=== PATIENT | male | born 1970 | race Caucasian/White ===

== ENCOUNTER 2018-07-13 11:26 | Observation (INO) ==
--- NOTE | 2018-07-13 15:26 | Internal Med History&Physical ---
Date of Encounter: 07/13/18 Time of Encounter: 15:09 Internal Medicine - H&P: HPI Chief complaint: Abdominal Pain Admitted From: Home Plans for Post Hospital Care: Home History of present illness: Mr. Chaudhari is a 48 year old male who presented to [facility] with chief complaint of abdominal pain. Patient states that he recently had over 20 teeth extracted and developed TMJ and was seen at [place]. He states that the shortness him to use Motrin for his TMJ pain. Patient reports 2 days of this and then he subsequently developed progressive and severe abdominal pain and the epigastric and right upper quadrant area. The patient does report a history of similar symptoms 3 years ago and states that he was told that he had inflammation of his bowel, patient states that he had upper endoscopy and colonoscopy of the time but his symptoms improved and he is in no follow-up regarding this issue since then. Patient states over the past 2 days he has been experiencing worsening abdominal pain with nausea and vomiting. The patient denies any correlation with any liquids or food intake. Patient also admits to very watery diarrhea that has started over the last day or 2. Patient denies any hematochezia or hematemesis or melena. Patient reports that he has only been taking NSAIDs for the past 3-4 days. 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 Patient describes pain as severe and intermittent. Currently the patient denies any chest pain, shortness of breath, constipation, blurry vision, no vision, neck pain, headache, neck stiffness, largely swelling. Patient is a light truck driver and travels frequently. Patient has any recent sick contacts. Patient does admit to continued abdominal pain and nausea. Patient has been afebrile. Patient also has history of left-sided lung cancer status post lobectomy and also had "blood clot" around that time that was treated with AC for a few months per pt. Reports past tobacco use denies any current tobacco use or alcohol use. Takes no medications at home his recent NSAIDs. Past Med Surg Social Fam HX - Past Medical History Attestation: Yes The following information was validated with the patient. Medical history: cancer Additional medical history: LUNG CANCER LT UPPER LOBE REMOVED 2009 Psychiatric history: anxiety, depression - Past Surgical History Additional surgical history: LT UPPER LOBE OF LUNG REMOVED DUE TO CA. - Social History Smoking Status: Former smoker Smokeless Tobacco Status: No Alcohol use: rarely Drug use: none - Family History Father Age at : 35 Cause of : CA Hx Family Cardiac Disorders: Yes - Additional Family History Additional family history: Patient history is reviewed with patient and patient denies any significant family history other than is described as above. Internal Medicine - H&P: Meds Ibuprofen [Ibu] 400 mg PO Q6H PRN 07/13/18 [History] 3 Allergy/AdvReac Type Severity Reaction Status Date / Time bupropion [From Wellbutrin] Allergy Seizure Verified 07/13/18 08:10 Varenicline [From Chantix] Allergy Seizure Verified 07/13/18 08:10 All Systems PM: A 10-system review of systems was performed and is negative for pertinent findings except as documented above in the HPI. Review of systems: 10 point review of systems obtained and is otherwise negative other than described in history of present illness - Constitutional Exam: Constitutional: Mild distress secondary to abdominal pain, holding abdomen Psych: AAO x 3 HEENT: NCAT, EOMI Neck: supple, no JVD Cardio: regular rate and rhythm, +s1s2, no murmurs Resp: clear to ascultation bilaterally, no wheezes/rales/ronchi Abd: soft, TTP in right upper quadrant and epigastrum, hyperactive bowel sounds , no guarding, rebound or rigidity Extremities: no clubbing/cyanosis/edema appreciated Neuro: no focal deficits appreciated Lymph: no cervical/supraclavicular adenopahty apprecitated - Assessment and plan (1) Abdominal pain Current Visit: Yes Status: Acute Assessment and plan: -3 day history of worsening intermittent RUQ, epigastric pain and diarrhea -CT with findings suggestive of inflammatory or infectious duodenitis; suspect inflammatory due to lack of fever and leukocytosis -Denies any hematemesis, melena, hematochezia -Recent NSAID use secondary to tooth extraction; symptoms began 2 days after NSAIDs were started; no chronic use -reports hx of inflammed bowel 3 years ago that was evaluated by EGD, colonoscopy; however symptoms improved and has had no follow-up regarding this issue -LFTs and lipase within normal limits -Gen surgery contacted by [facility] to consult and evaluate -Obtain RUQ us to evaluate GB for completeness as the pain is intermittent and possible sludge/stones in GB on CT scan -po PPI bid -analgesia -A.m. labs -Should the patient developed leukocytosis or fever will have low threshold for starting antibiotics with Rocephin and Flagyl for duodenitis; but will hold off for now -Due to associated diarrhea will check GI panel Qualifiers: Abdominal location: right upper quadrant Qualified Code(s): R10.11 - Right upper quadrant pain (2) Duodenitis Current Visit: Yes Status: Acute Assessment and plan: -as above -suspect acute on chronic; possibly associated with recent NSAID use, however no chronic NSAID use -surgery to evaluate -suspect inflammatory vs less likely infectious; hold off on abx for now -CLD -analgesia -reports hx of similar symptoms 3 years ago and had EGD/Colonoscopy at that time and told he had bowel inflammation -will monitor -PPI (3) Cyst of left kidney Current Visit: Yes Status: Acute Assessment and plan: -7mm upper pole cyst of left kidney -incidentally found on imaging -likely hemorrhagic per CT report -outpatient follow up as needed (4) History of lung cancer Current Visit: Yes Status: Acute Assessment and plan: -RENZO lung ca in 2008 -s/p lobectomy -no recurrence to date (5) History of thrombosis Current Visit: Yes Status: Acute Assessment and plan: -associated with hx of lung cancer -treated appropriately and no recurrence -sq heparin (6) Past use of tobacco Current Visit: Yes Status: Acute Assessment and plan: -50 pack year history -stopped 9 years ago (7) DVT prophylaxis Current Visit: Yes Status: Acute Assessment and plan: -heparin sq - Time Spent With Patient Total time spent is greater than 50% in coordination of care (as documented) at patient's floor/unit and/or counseling patient: Greater than 35 minutes (40 minutes)
[2018-07-13] MEDS ORDERED: Naloxone 0.4 MG/ML INJ IVP PRN (15:29)
[2018-07-13] MEDS: OXYCODONE Oral CONC 10 MG/0.5 ML ORAL.SYG SL PRN ×2 (16:39→20:39)
[2018-07-13] MEDS: Ringers Solution, Lactated 1,000 ML IVC SCH (16:39)
--- NOTE | 2018-07-13 16:58 | General Surgery Consult Note ---
<Valerie Bartholomew - Last Filed: 07/13/18 16:40> Date of Encounter: 07/13/18 Time of Encounter: 16:40 Assessment and Plan (1) Duodenitis Current Visit: Yes Status: Acute Based on CT abd pelvis most likely cause of RUQ pain is duodenitis Gall bladder etiology unlikely given normal liver enzymes and RUQ US showed normal gallbladder with out stones, wall thickening, pericholecystic fluid, or bilary duct dilation. - GI infectious panel ordered by primary team and reflex precautions - agree with IVF and pain medications prn - start IV protonix daily - start carafate - zofran , then phenegran for nausea - NPO at midnight - plan for EGD with in 24 -[address] Tinajero - surgery will continue to follow History of Present Illness Consult date: 07/13/18 Reason for consult: abdominal pain Requesting physician: René Starkey History of present illness: 3o malew with distant history of lung cancer presented to [facility] with two days of RUQ abdominal pain that started after taking Ibuprofen for TMJ. Associated symptoms of bilious vomiting, nausea, and increased diarrhea from this chronic baseline. He describes loose moderate volumed stool with no change in color just increase in bowel movements. Last emesis reported early this morning. Onset on with reflux pain after started taking ibuprofen 400mg q 6 on Sunday night after diagnosed with TMJ.. At [facility], his CT showed duodenal thickening . Normal labs for liver function , INR, CBC, CMP, UDS, lipase and amylase. He denies recent hospitalization, recent antibiotics or diagnosis with crohnes or ulcerative colitis. He had last EGD and colonoscopy 3-4 years ago at [facility] for what he describes as swelling of bowels and a gastric ulcer - but no history of GI bleed. He drinks at least one pot of coffee per day and another three 22 oz bottles of tea when on the road. 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 At [facility], we were consulted by hospitalist service after GI panel and liver US were ordered. He takes no other medications except occasional tumeric, janes or probiotic. Former smoker with past history of heavy EtOH use - but denies any recent use of either. Barry any illicit substance use. Family history of unknown gallbladder issues in mother. PMHx lung cancer post lobectomy with adjunctive chemo and radiation in 2009. He was released form oncology care for PCP to follow with scans and no current concern for reemergence. His surgical history also includes several inguinal hernia repairs- with no adverse reaction to anesthesia . Past Med Surg Social Fam HX - Past Medical History Medical history: cancer Additional medical history: LUNG CANCER LT UPPER LOBE REMOVED 2009 Psychiatric history: anxiety, depression - Past Surgical History Additional surgical history: LT UPPER LOBE OF LUNG REMOVED DUE TO CA. - Social History Smoking Status: Former smoker Smokeless Tobacco Status: No Alcohol use: rarely Drug use: none - Family History Father Age at : 35 Cause of : [place] Hx Family Cardiac Disorders: Yes Medications and Allergies Ibuprofen [Ibu] 400 mg PO Q6H PRN 07/13/18 [History] 3 Allergy/AdvReac Type Severity Reaction Status Date / Time bupropion [From Wellbutrin] Allergy Seizure Verified 07/13/18 08:10 Varenicline [From Chantix] Allergy Seizure Verified 07/13/18 08:10 Review of Systems All systems PM: The remainder of the systems were reviewed and are negative - Constitutional malaise - Gastrointestinal abdominal pain, change in stool character, diarrhea, dyspepsia, heartburn, loose stools, nausea, vomiting, no coffee ground emesis, no hematemesis, no melena General Surgery Exam Initial Vital Signs Temp Pulse Resp BP Pulse Ox 98.2 F 64 17 120/78 97 07/13/18 15:29 07/13/18 15:29 07/13/18 15:29 07/13/18 15:29 07/13/18 15:29 - General physical appearance well developed, well nourished, moderate distress - Eyes normal ocular movement - ENT normal pinna, normal nares, dry mucosa - Respiratory normal expansion, normal respiratory effort, clear to auscultation - Cardiovascular Cardiovascular exam: Present: RRR, no murmurs/rubs/gallops - Abdomen Abdomen general surgery: Present: bowel sounds present, soft. Absent: tympanic , distended, guarding Abdominal Tenderness: Present: RUQ Hernia: Present: none - Integumentary Integumentary general surgery: Present: warm and dry. Absent: diaphoresis - Neurologic Present: CN 2-12 grossly intact, normal coordination, normal sensation - Musculoskeletal Present: normal gait, normal posture - Psychiatric Psychiatric general surgery: Present: A&Ox3, speech is normal, memory intact Exam Initial Vital Signs Temp Pulse Resp BP Pulse Ox 98.2 F 64 17 120/78 97 07/13/18 15:29 07/13/18 15:29 07/13/18 15:29 07/13/18 15:29 07/13/18 15:29 Results - Labs All other labs normal. Consult Discharge Plan - Plan Referrals: Moshe York CNP [Primary Care Provider] - Nancy Freitas [Family Provider] - <Galen Tinajero M - Last Filed: 07/14/18 06:52> Date of Encounter: 07/13/18 Review of Systems All systems PM: The remainder of the systems were reviewed and are negative General Surgery Exam Initial Vital Signs Temp Pulse Resp BP Pulse Ox 98.2 F 64 17 120/78 97 07/13/18 15:29 07/13/18 15:29 07/13/18 15:29 07/13/18 15:29 07/13/18 15:29 Exam Initial Vital Signs Temp Pulse Resp BP Pulse Ox 98.2 F 64 17 120/78 97 07/13/18 15:29 07/13/18 15:29 07/13/18 15:29 07/13/18 15:29 07/13/18 15:29 Results - Labs 07/14/18 04:20 07/14/18 04:20 Abnormal lab results RBC 4.03 M/mcL (4.19-5.50) L 07/14/18 04:20 Hgb 12.1 g/dL (12.9-16.9) L D 07/14/18 04:20 Hct 36.1 % (37.5-50.1) L 07/14/18 04:20 Eosinophils # 0.7 K/mcL (0.0-0.6) H 07/14/18 04:20 Chloride 112 mEq/L (98-107) H 07/14/18 04:20 POC Glucose 122 mg/dL (70-99) H 07/14/18 05:31 Calcium 8.4 mg/dL (8.6-10.3) L 07/14/18 04:20 Diabetes panel 07/14/18 Range/Units 04:20 Sodium 141 (136-145) mEq/L Potassium 4.1 (3.5-5.1) mEq/L Chloride 112 H (98-107) mEq/L Carbon Dioxide 25 (23-29) mEq/L BUN 10 (6-20) mg/dL Creatinine 0.82 (0.70-1.30) mg/dL Glucose 97 (70-105) mg/dL Calcium 8.4 L (8.6-10.3) mg/dL Calcium panel 07/14/18 Range/Units 04:20 Calcium 8.4 L (8.6-10.3) mg/dL Pituitary panel 07/14/18 Range/Units 04:20 Sodium 141 (136-145) mEq/L Potassium 4.1 (3.5-5.1) mEq/L Chloride 112 H (98-107) mEq/L Carbon Dioxide 25 (23-29) mEq/L BUN 10 (6-20) mg/dL Creatinine 0.82 (0.70-1.30) mg/dL Glucose 97 (70-105) mg/dL Calcium 8.4 L (8.6-10.3) mg/dL Adrenal panel 07/14/18 Range/Units 04:20 Sodium 141 (136-145) mEq/L Potassium 4.1 (3.5-5.1) mEq/L Chloride 112 H (98-107) mEq/L Carbon Dioxide 25 (23-29) mEq/L BUN 10 (6-20) mg/dL Creatinine 0.82 (0.70-1.30) mg/dL Glucose 97 (70-105) mg/dL Calcium 8.4 L (8.6-10.3) mg/dL All other labs normal. - Attending Attestation I examined this patient and my medical decision-making was reviewed with the Resident Physician. I agree with the documented findings, disposition and treatment plan as described except to the extent set forth below. I reviewed the above assessment and evaluation and agree with the above plan. Patient has had right upper quadrant pain for the past 2 days. He started taking Motrin for TMJ pain during that period. Denies any nausea or vomiting. Tender to palpation in right upper quadrant with no palpable masses noted. I personally reviewed the CT scan images were performed which demonstrated inflammation of the duodenum. There is no evidence of free air or free fluid. It does not look like he has any abnormalities related to the pancreas. I agree with the assessment of duodenitis and will start Protonix as well as Carafate. We will also perform an EGD for further evaluation. Discussed with the patient and he agrees with the above plan.
[2018-07-13] MEDS ORDERED: Ondansetron 4 MG/2 ML VIAL IVP PRN (17:00)
[2018-07-13] MEDS ORDERED: *HR* Promethazine 25 MG/ML VIAL IVP PRN (17:01)
[2018-07-13] MEDS: Sucralfate 1 GM TABLET PO SCH ×2 (17:59→21:28)
[2018-07-13] MEDS: Pantoprazole 40 MG VIAL IVP SCH (17:59)
[2018-07-13] MEDS: *HR* Heparin 5,000 UNIT/ML VIAL SQ SCH (21:28)
[2018-07-14] MEDS: OXYCODONE Oral CONC 10 MG/0.5 ML ORAL.SYG SL PRN ×4 (04:13→18:47)
[2018-07-14 04:46] LABS: Basophils % 0.7 %; Eosinophils # 0.7 K/mcL (0.0-0.6); Eosinophils % 11.7 %; Hematocrit 36.1 % (37.5-50.1); Hemoglobin 12.1 g/dL (12.9-16.9); Immature Granulocytes % 0.2 % (0-4); Lymphocytes % 32.7 %; Mean Corpuscular HGB Conc 33.5 g/dL (31.6-35.5); Mean Corpuscular Volume 89.6 fL (83.0-100.0); Mean Platelet Volume 10.3 fL (9.4-12.4); Monocytes # 0.5 K/mcL (0.0-1.3); Monocytes % 7.9 %; Neutrophils # 2.8 K/mcL (1.6-8.9); Platelet Count 158 K/mcL (140-400); Red Blood Count 4.03 M/mcL (4.19-5.50); Red Cell Distribution Width 13.8 % (11.5-14.5); Segmented Neutrophils % 46.8 %
[2018-07-14 05:13] LABS: BUN/Creatinine Ratio 12 (6-26); Blood Urea Nitrogen 10 mg/dL (6-20); Calcium 8.4 mg/dL (8.6-10.3); Carbon Dioxide 25 mEq/L (23-29); Chloride 112 mEq/L (98-107); Glucose 97 mg/dL (70-105); Osmolality,Calculated 291 (280-300); Potassium 4.1 mEq/L (3.5-5.1); Sodium 141 mEq/L (136-145); eGFR For Non-African Americans > 60 (> 60)
[2018-07-14] MEDS: *HR* Heparin 5,000 UNIT/ML VIAL SQ SCH ×3 (05:38→21:11)
[2018-07-14] MEDS: Sucralfate 1 GM TABLET PO SCH ×4 (06:48→21:11)
[2018-07-14] MEDS: Ringers Solution, Lactated 1,000 ML IVC SCH (07:05)
[2018-07-14] MEDS ORDERED: Lidocaine -MPF 2% 2 ML VIAL ONE (07:08)
[2018-07-14] MEDS ORDERED: *HR* Propofol 200 MG/20 ML VIAL IVP ONE (07:08)
--- NOTE | 2018-07-14 07:58 | Anesthesia Evaluation PreOp ---
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 Other Medical History: Other (INTERMITTENT SEVERE ABDOMINAL PAIN, ?DUODENITIS) Anesthesia History: No Prior Anesthetic Complications, Past Anesthesia Alcohol Use: rarely Drug use: none Medications and Allergies Ibuprofen [Ibu] 400 mg PO Q6H PRN 07/13/18 [History] 3 Allergy/AdvReac Type Severity Reaction Status Date / Time bupropion [From Wellbutrin] Allergy Seizure Verified 07/13/18 08:10 Varenicline [From Chantix] Allergy Seizure Verified 07/13/18 08:10 - Meds/Allergy Pre-op Review Medications Reviewed: Yes Allergies Reviewed: Yes Beta Blockers on Current Med List: No Anesthesia Results - Labs 07/14/18 04:20 07/14/18 04:20 Laboratory Last Values WBC 6.1 K/mcL (4.3-11.1) 07/14/18 04:20 RBC 4.03 M/mcL (4.19-5.50) L 07/14/18 04:20 Hgb 12.1 g/dL (12.9-16.9) L D 07/14/18 04:20 Hct 36.1 % (37.5-50.1) L 07/14/18 04:20 MCV 89.6 fL (83.0-100.0) 07/14/18 04:20 MCH 30.0 pg (28.0-33.3) 07/14/18 04:20 MCHC 33.5 g/dL (31.6-35.5) 07/14/18 04:20 RDW 13.8 % (11.5-14.5) 07/14/18 04:20 Plt Count 158 K/mcL (140-400) 07/14/18 04:20 MPV 10.3 fL (9.4-12.4) 07/14/18 04:20 Immature Gran % 0.2 % (0-4) 07/14/18 04:20 Seg Neutrophils % 46.8 % 07/14/18 04:20 Lymphocytes % 32.7 % 07/14/18 04:20 Monocytes % 7.9 % 07/14/18 04:20 Eosinophils % 11.7 % 07/14/18 04:20 Basophils % 0.7 % 07/14/18 04:20 Neutrophils # 2.8 K/mcL (1.6-8.9) 07/14/18 04:20 Lymphocytes # 2.0 K/mcL (0.6-4.6) 07/14/18 04:20 Monocytes # 0.5 K/mcL (0.0-1.3) 07/14/18 04:20 Eosinophils # 0.7 K/mcL (0.0-0.6) H 07/14/18 04:20 Basophils # 0.0 K/mcL (0.0-0.2) 07/14/18 04:20 Sodium 141 mEq/L (136-145) 07/14/18 04:20 Potassium 4.1 mEq/L (3.5-5.1) 07/14/18 04:20 Chloride 112 mEq/L (98-107) H 07/14/18 04:20 Carbon Dioxide 25 mEq/L (23-29) 07/14/18 04:20 BUN 10 mg/dL (6-20) 07/14/18 04:20 Creatinine 0.82 mg/dL (0.70-1.30) 07/14/18 04:20 Est GFR ( Amer) > 60 (> 60) 07/14/18 04:20 Est GFR (Non-Af Amer) > 60 (> 60) 07/14/18 04:20 BUN/Creatinine Ratio 12 (6-26) 07/14/18 04:20 Glucose 97 mg/dL (70-105) 07/14/18 04:20 POC Glucose 122 mg/dL (70-99) H 07/14/18 05:31 Calculated Osmolality 291 (280-300) 07/14/18 04:20 Calcium 8.4 mg/dL (8.6-10.3) L 07/14/18 04:20 Anesthesia Exam Vital Signs/O2 Sat, Most Current Temp Pulse Resp BP Pulse Ox 98 F 60 16 116/73 93 07/14/18 06:39 07/14/18 06:39 10 06:39 07/14/18 06:39 07/14/18 06:39 HEIGHT 1.68 m WEIGHT 80 kg BMI 29 NPO (# of Hours): 8 - HEENT Mallampati: II Teeth: Edentulous Oral Opening: Greater than 3 - Cardiac Rhythm: Regular - Pulmonary Breath Sounds: bilateral Clear Respiratory Effort: Symmetrical - Additional Findings INPATIENT Active Medications Heparin Sodium (Porcine) (Heparin) 5,000 unit SQ Q8HCO [facility] Stop: 01/12/19 22:01 Last Admin: 07/14/18 05:38 Dose: 5,000 unit Lactated Ringer's (Lactated Ringers) 1,000 mls @ 75 mls/hr IVC .[id number] [facility] Stop: 07/14/18 18:09 Last Admin: 07/13/18 16:39 Dose: 75 mls/hr Ondansetron HCl (Zofran) 4 mg IVP Q6HR PRN; Protocol PRN Reason: Nausea Stop: 01/12/19 17:01 Oxycodone HCl (Oxycodone Oral Conc) 5 mg SL Q4H PRN; Protocol PRN Reason: mild to moderate pain Stop: 01/12/19 15:30 Last Admin: 07/14/18 04:13 Dose: 5 mg Pantoprazole Sodium (Protonix) 40 mg IVP DAILY [facility] Stop: 01/12/19 17:16 Last Admin: 07/13/18 17:59 Dose: 40 mg Anesthesia Assess/Plan ASA Score: 3 Modified Dasha Scale for Level of Consciousness: Cooperative, oriented, and tranquil Anesthetic Plan: MAC Monitoring Plan: Standard Monitors Recovery Plan: Other Anes Supervising Prov Stmt: Patient informed and consented. Risks, benefits, and alternatives discussed. Patient wishes to proceed.
[2018-07-14] MEDS: Pantoprazole 40 MG VIAL IVP SCH (08:14)
[2018-07-14] MEDS ORDERED: Ondansetron 4 MG/2 ML VIAL ONE (08:17)
--- NOTE | 2018-07-14 09:20 | Event Note ---
Date of Encounter: 07/14/18 Time of Encounter: 09:18 EGD performed. Noted erythema in the stomach. Biopsies obtained. Duodenal erosions and inflammation in the 1st and 2nd portion of the duodenum. Biopsies and cultures obtained. Continue with Carafate, PPI, and will add Flagyl. Await culture and biopsy results.
--- NOTE | 2018-07-14 09:56 | Internal Med Progress Note ---
Hospitalist Progress Note - Encounter Date of Encounter: 07/14/18 Time of Encounter: 09:53 - Subjective Interval History: Patient seen and examined at bedside. Patient no acute overnight events. Patient continues to have continued abdominal pain with nausea but no further vomiting. Patient denies any chest pain, shortness of breath, diarrhea or constipation. Patient has had no bowel movement since admission. EGD this am - Exam Vitals: Temp Pulse Resp BP Pulse Ox 98 F 84 16 152/83 97 07/14/18 08:48 07/14/18 08:48 07/14/18 08:48 07/14/18 08:48 07/14/18 08:48 Exam: Constitutional: Mild distress secondary to abdominal pain, holding abdomen Psych: AAO x 3 HEENT: NCAT, EOMI Neck: supple, no JVD Cardio: regular rate and rhythm, +s1s2, no murmurs Resp: Expiratory wheeze in left lower base Abd: soft, TTP in right upper quadrant and epigastrum that is improved from yesterday, normactive bowel sounds, no guarding, rebound or rigidity Extremities: no clubbing/cyanosis/edema appreciated Neuro: no focal deficits appreciated - Assessment and Plan (1) Abdominal pain Current Visit: Yes Status: Inactive Assessment and Plan: -3 day history of worsening intermittent RUQ, epigastric pain and diarrhea -CT with findings suggestive of inflammatory or infectious duodenitis; suspect inflammatory due to lack of fever and leukocytosis -Denies any hematemesis, melena, hematochezia -Recent NSAID use secondary to tooth extraction; symptoms began 2 days after NSAIDs were started; no chronic use -reports hx of inflammed bowel 3 years ago that was evaluated by EGD, colonoscopy; however symptoms improved and has had no follow-up regarding this issue -LFTs and lipase within normal limits -Gen surgery following, EGD this am showed duodenal erosion and inflamation in 1st and 2nd part of duodenum; cultures and biopsies obtained. -flagyl started -GB US unremarkable -IV PPI bid -analgesia -carafate started -A.m. labs -no fever or leukocytosis -Due to associated diarrhea will check GI panel; however no bm since admission (2) Duodenitis Current Visit: Yes Status: Acute Assessment and Plan: -as above -suspect acute on chronic; possibly associated with recent NSAID use, however no chronic NSAID use -surgery following -suspect inflammatory vs infectious; flagyl started due to duodenal erosions and inflamation, giardia ordered -FLD -analgesia -reports hx of similar symptoms 3 years ago and had EGD/Colonoscopy at that time and told he had bowel inflammation -will monitor -PPI (3) Cyst of left kidney Current Visit: Yes Status: Acute Assessment and Plan: -7mm upper pole cyst of left kidney -incidentally found on imaging -likely hemorrhagic per CT report -outpatient follow up as needed (4) History of lung cancer Current Visit: Yes Status: Acute Assessment and Plan: -RENZO lung ca in 2008 stage III -s/p lobectomy -no recurrence to date (5) History of thrombosis Current Visit: Yes Status: Acute Assessment and Plan: -associated with hx of lung cancer -treated appropriately and no recurrence -sq heparin (6) Past use of tobacco Current Visit: Yes Status: Acute Assessment and Plan: -50 pack year history -stopped 9 years ago (7) DVT prophylaxis Current Visit: Yes Status: Acute Assessment and Plan: -heparin sq DVT Prophylaxis: -sq heparin - Time Spent with Patient Total time spent is greater than 50% in coordination of care (as documented) at patient's floor/unit and/or counseling patient: 25 - 35 minutes Plan of Care Discussed with: family Internal Medicine: Result - Labs CBC & Chem 7: 07/14/18 04:20 07/14/18 04:20 Labs: Short CBC 07/14/18 Range/Units 04:20 WBC 6.1 (4.3-11.1) K/mcL Hgb 12.1 L D (12.9-16.9) g/dL Hct 36.1 L (37.5-50.1) % Plt Count 158 (140-400) K/mcL Neutrophils # 2.8 (1.6-8.9) K/mcL BMP 07/14/18 04:20 Sodium 141 Potassium 4.1 Chloride 112 H Carbon Dioxide 25 BUN 10 Creatinine 0.82 Glucose 97 Calcium 8.4 L - Impressions Impressions Gallbladder Ultrasound 07/13/18 15:33 IMPRESSION: Unremarkable right upper quadrant ultrasound. D/ / Richmond Rosario MD / Richmond Rosario MD Interpreting Provider: Richmond Rosario MD Consult Discharge Plan - Plan Referrals: Moshe York, [place] [Primary Care Provider] - Nancy Freitas [Family Provider] - (1) Abdominal pain Qualifiers: Abdominal location: right upper quadrant Qualified Code(s): R10.11 - Right upper quadrant pain
[2018-07-14] MEDS: Acetaminophen 325 MG TABLET PO PRN (21:10)
[2018-07-14] MEDS: metroNIDAZOLE 500 MG TABLET PO SCH (21:11)
[2018-07-15 02:11] LABS: Basophils # 0.1 K/mcL (0.0-0.2); Eosinophils # 0.7 K/mcL (0.0-0.6); Eosinophils % 13.6 %; Hematocrit 35.7 % (37.5-50.1); Hemoglobin 11.9 g/dL (12.9-16.9); Immature Granulocytes % 0.2 % (0-4); Lymphocytes # 2.2 K/mcL (0.6-4.6); Lymphocytes % 43.8 %; Mean Corpuscular HGB Conc 33.3 g/dL (31.6-35.5); Mean Corpuscular Volume 89.9 fL (83.0-100.0); Mean Platelet Volume 10.5 fL (9.4-12.4); Monocytes # 0.4 K/mcL (0.0-1.3); Monocytes % 8.8 %; Neutrophils # 1.6 K/mcL (1.6-8.9); Platelet Count 149 K/mcL (140-400); Red Blood Count 3.97 M/mcL (4.19-5.50); Red Cell Distribution Width 13.6 % (11.5-14.5); Segmented Neutrophils % 32.6 %
[2018-07-15 02:33] LABS: BUN/Creatinine Ratio 6 (6-26); Blood Urea Nitrogen 6 mg/dL (6-20); Calcium 8.7 mg/dL (8.6-10.3); Carbon Dioxide 28 mEq/L (23-29); Chloride 109 mEq/L (98-107); Glucose 93 mg/dL (70-105); Osmolality,Calculated 289 (280-300); Potassium 4.3 mEq/L (3.5-5.1); Sodium 141 mEq/L (136-145); eGFR For Non-African Americans > 60 (> 60)
[2018-07-15] MEDS: Acetaminophen 325 MG TABLET PO PRN (03:46)
[2018-07-15] MEDS: *HR* Heparin 5,000 UNIT/ML VIAL SQ SCH (06:26)
[2018-07-15 07:42] VITALS: BP 138/74
[2018-07-15] MEDS: Sucralfate 1 GM TABLET PO SCH ×2 (08:10→11:04)
[2018-07-15] MEDS: Pantoprazole 40 MG VIAL IVP SCH (08:10)
[2018-07-15] MEDS: metroNIDAZOLE 500 MG TABLET PO SCH (08:10)
[2018-07-15] MEDS: OXYCODONE Oral CONC 10 MG/0.5 ML ORAL.SYG SL PRN (08:14)
--- NOTE | 2018-07-15 08:14 | General Surgery Progress Note ---
Date of Encounter: 07/15/18 Time of Encounter: 08:12 - Assessment and Plan (1) Duodenitis Current Visit: Yes Status: Acute I reviewed with the patient the results of the EGD findings. Biopsies are pending. From a surgical standpoint I am okay with him being discharged home today. Recommend Flagyl 500 mg by mouth twice a day for 5 days. We will make certain that he has a follow-up to see us in the office in 2 weeks. Subjective Patient reports: other (Patient states his abdominal pain is improved. Tolerated full liquids yesterday evening without nausea or vomiting.) Objective Vital Signs - Last 8 Hours Temp Pulse Resp BP Pulse Ox 07/15/18 07:35 97.7 F 58 14 138/74 97 07/15/18 03:32 97.6 F 62 16 125/69 96 Intake and Output 07/14/18 07/15/18 07/15/18 23:59 07:59 15:59 Intake Total 1120 / 1120 0 / 0 Output Total 1600 / 1600 700 / 700 Balance -480 / -480 -700 / -700 Intake: IV Fluids 1000 / 1000 Lactated Ringers 1,000 ML @ 75 1000 / 1000 mls/hr IVC .[id number] MALINDA Rx#: [id number] Oral 120 / 120 0 / 0 Output: Urine 1600 / 1600 700 / 700 Other: Percent of Meal Consumed 65% Weight 80.5 kg Patient Weight 07/15/18 23:59 Weight 80.5 kg - General physical appearance well nourished, no distress - Abdomen Abdomen: Present: soft, tender (minimal RUQ pain) - Labs 07/15/18 01:28 07/15/18 01:28 Diabetes panel 07/15/18 Range/Units 01:28 Sodium 141 (136-145) mEq/L Potassium 4.3 (3.5-5.1) mEq/L Chloride 109 H (98-107) mEq/L Carbon Dioxide 28 (23-29) mEq/L BUN 6 (6-20) mg/dL Creatinine 0.94 (0.70-1.30) mg/dL Glucose 93 (70-105) mg/dL Calcium 8.7 (8.6-10.3) mg/dL Calcium panel 07/15/18 Range/Units 01:28 Calcium 8.7 (8.6-10.3) mg/dL Pituitary panel 07/15/18 Range/Units 01:28 Sodium 141 (136-145) mEq/L Potassium 4.3 (3.5-5.1) mEq/L Chloride 109 H (98-107) mEq/L Carbon Dioxide 28 (23-29) mEq/L BUN 6 (6-20) mg/dL Creatinine 0.94 (0.70-1.30) mg/dL Glucose 93 (70-105) mg/dL Calcium 8.7 (8.6-10.3) mg/dL Adrenal panel 07/15/18 Range/Units 01:28 Sodium 141 (136-145) mEq/L Potassium 4.3 (3.5-5.1) mEq/L Chloride 109 H (98-107) mEq/L Carbon Dioxide 28 (23-29) mEq/L BUN 6 (6-20) mg/dL Creatinine 0.94 (0.70-1.30) mg/dL Glucose 93 (70-105) mg/dL Calcium 8.7 (8.6-10.3) mg/dL Consult Discharge Plan - Plan Referrals: Moshe York CNP [Primary Care Provider] - Nancy Freitas [Family Provider] -
--- NOTE | 2018-07-15 08:34 | Discharge Summary ---
- NOTES TO OUTPATIENT PROVIDER Notes to Outpatient Provider: Patient presented with severe abdominal pain and was found to have duodenitis patient was seen by general surgery performed EGD with biopsies that are currently pending. Please follow up on these biopsies. Patient also reported recent diarrhea however this resulted in the hospital and therefore stool panel was unable to be obtained. General surgery recommended continuing Flagyl 500 twice a day for 5 additional days. Patient will be discharged on Flagyl, Carafate, Protonix. Patient follow-up with Dr. Tinajero from general surgery in 2 weeks. Patient stable and agreeable to discharge on 07/15/2018. All questions answered. Patient instructed to follow his primary care physician within one week. Orders not resulted at time of discharge: Pending orders 07/14/18 09:14 Surgical Pathology [PTH] Routine 07/14/18 09:46 Culture,Anaerobic [RM] Routine Culture,Body Fluid [RM] Routine Giardia Antigen by EIA,Fecal Routine Date of Encounter: 07/15/18 Time of Encounter: 08:29 - Discharge Diagnosis (1) Duodenitis Priority: Primary Status: Acute (2) Abdominal pain Priority: Secondary Status: Inactive Qualifiers: Abdominal location: right upper quadrant Qualified Code(s): R10.11 - Right upper quadrant pain (3) Cyst of left kidney Priority: Secondary Status: Acute (4) History of lung cancer Priority: Secondary Status: Acute (5) History of thrombosis Priority: Secondary Status: Acute (6) Past use of tobacco Priority: Secondary Status: Acute (7) DVT prophylaxis Priority: Secondary Status: Acute Hospital course: Patient presented with severe abdominal pain and was found to have duodenitis patient was seen by general surgery performed EGD with biopsies that are currently pending. Please follow up on these biopsies. Patient also reported recent diarrhea however this resulted in the hospital and therefore stool panel was unable to be obtained. General surgery recommended continuing Flagyl 500 twice a day for 5 additional days. Patient will be discharged on Flagyl, Carafate, Protonix. Patient follow-up with Dr. Tinajero from general surgery in 2 weeks. Patient stable and agreeable to discharge on 07/15/2018. All questions answered. Patient instructed to follow his primary care physician within one week. Discharge discussed with: patient, nurse - Time Spent with Patient Total time spent providing and/or coordinating discharge services: Less than 30 minutes - Discharge Medications Prescriptions: metroNIDAZOLE [Flagyl] 500 mg PO BID 5 Days #11 tablet Pantoprazole Sodium [Protonix] 40 mg PO DAILY 30 Days #30 tablet. Sucralfate [Carafate] 1 gm PO QIDAC 30 Days #120 tablet Home Medications: Pantoprazole Sodium [Protonix] 40 mg PO DAILY 30 Days #30 tablet. 07/15/18 [Rx ] Sucralfate [Carafate] 1 gm PO QIDAC 30 Days #120 tablet 07/15/18 [Rx] metroNIDAZOLE [Flagyl] 500 mg PO BID 5 Days #11 tablet 07/15/18 [Rx] Allergies/Adverse Reactions: 3 Allergy/AdvReac Type Severity Reaction Status Date / Time bupropion [From Wellbutrin] Allergy Seizure Verified 07/13/18 08:10 Varenicline [From Chantix] Allergy Seizure Verified 07/13/18 08:10 Date of admission: 07/13/18 14:42 Primary care physician: Moshe York CNP Consults: 07/13/18 15:32 Consult to Surgery [CONS] Routine Consulting Provider: Galen Tinajero Reason for Consult: duodenitis; called from [facility] Call Completed: Yes - Constitutional Vitals: Temp Pulse Resp BP Pulse Ox 97.7 F 58 14 138/74 97 07/15/18 07:35 07/15/18 07:35 07/15/18 07:35 07/15/18 07:35 07/15/18 07:35 Exam: Constitutional: No acute distress, Alert Psych: AAO x 3 HEENT: NCAT Neck: supple, no JVD Cardio: regular rate and rhythm, +s1s2 Resp: clear to ascultation bilaterally Abd: soft, non tender/non distended, positive bowel sounds, no gaurding/reboud/ ridgitity Extremities: no clubbing/cyanosis/edema appreciated Neuro: no focal deficits appreciated Lymph: no cervical/supraclavicular adenopahty apprecitated - Patient Status Disposition: Home, Self-Care Condition: Good Functional capacity at discharge: independent ambulation Overall status at discharge: patient is progressing back to baseline - Discharge Instructions Follow Up With: Moshe York CNP [Primary Care Provider] - ZProvider,ZConversio [Family Provider] - Additional Instructions: Follow up with Dr. Tinajero in 2 weeks. - Diet and Activity Activity: increase activity as tolerated Diet: other (Start with mostly liquids then and soft nonfat foods and advance slowly as tolerated avoiding acidic and fried foods.)
== END 2018-07-15 13:22 | disposition home or self-care (01) ==
LOC: 3ANU
PROVIDERS: ADMIT Internal Medicine; ATTEND Internal Medicine
PROC: ENDOEBX (2018-07-14 08:30)